=== PATIENT | female | born 1955 | race African-American/Black ===

== ENCOUNTER 2017-05-06 14:35 | Emergency (ER) | payer OTHER ==
[~2017-05-06] VITALS: Ht 167.6 cm; Wt 109.0 kg
[2017-05-06 14:46] VITALS: BP 155/71; PULSE 73; RESP 16; TEMP 97.6; O2SAT 96
--- NOTE | 2017-05-06 15:10 | PD ---
HPI Chief Complaint: Fall Time Seen by Provider: 15:05 Travel History International Travel<30 days: No Contact w/Intl Traveler<30days: No Traveled to known affect area: No History of Present Illness HPI Patient comes in for evaluation status post mechanical fall hitting her head. Patient states she was walking when her left knee buckled on her causing her to fall forward hitting her left forehead on the door frame and causing her fall to her knees. Patient denies any loss of consciousness, nausea, vomiting, chest pain, shortness of breath, loss of bowel or bladder, change in vision, dizziness or numbness or tingling anywhere. Patient is on Plavix and aspirin for previous stroke. Having pain over hematoma and a slight headache. Patient reports only residual deficit from stroke is also peripheral vision in her right eye. Patient states her knee has given out on her before and it feels fine currently. Patient complaining associated neck pain she describes as a soreness. Patient states she applied ice to the hematoma prior coming to the emergency department. Patient denies doing anything else for this. PFSH Past Medical History Hx Anticoagulant Therapy: Yes Cerebrovascular Accident: Yes Hypertension: Yes Social History Alcohol Use: Yes Tobacco Use: Yes Substance Use: No Allergies-Medications (Allergen,Severity, Reaction): Coded Allergies: Sulfa (Verified Allergy, Severe, 05/06/17) Reported Meds & Prescriptions Reported Meds & Active Scripts Active Reported [lisino] Ditropan (Oxybutynin Chloride) 5 Mg Tab 5 Mg PO Q8HR Aspirin 325 Mg Tab 325 Mg PO DAILY [plavix] Review of Systems Except as stated in HPI: all other systems reviewed are Neg Physical Exam Narrative GENERAL: Well-developed, overly nourished, in no acute distress, and non-ill appearing. SKIN: Focused skin assessment warm and dry. Hematoma left forehead is tender to palpation. Small bruise left anterior knee. HEAD: Atraumatic. Normocephalic. EYES: Pupils equal and round. EOMI. No scleral icterus. No injection or drainage. ENT: No nasal bleeding or discharge. Mucous membranes pink and moist. NECK: Trachea midline. Supple. No nuclear rigidity. CARDIOVASCULAR: Regular rate and rhythm. No murmur appreciated. RESPIRATORY: No accessory muscle use. No respiratory distress. Clear to auscultation. Breath sounds equal bilaterally. MUSCULOSKELETAL: No obvious deformities. No clubbing. No cyanosis. No edema. Full range of motion. Shoulder:FROM equal BL with passive flexion, extension, Abduction, Adduction, internal/external rotation, and pronation/supination. Sensation equal BL deltoid muscles. Pulses equal BL distal to injury. Capillary refill less than 2 seconds distal to injury and equal BL. FROM distal to injury and equal BL. Strength distal to injury equal BL. NV intact distal to injury equal BL. Flexion and extension of thumb equal BL. Equal strength and movement with abduction/adductions of BL fingers. Automobile Assembler strength equal BL. Knee: Negative patellar apprehension, varus and valgus maneuvers, anterior draw test, and Olu test. Pulses equal BL distal to injury. Capillary refill less than 2 seconds distal to injury and equal BL. FROM distal to injury and equal BL. Strength distal to injury equal BL. NV intact distal to injury. Dorsal pulses equal BL. Sensation equal BL 1st web space. NEUROLOGICAL: Awake and alert. No obvious cranial nerve deficits. Motor grossly within normal limits. Normal speech. PSYCHIATRIC: Appropriate mood and affect; insight and judgment normal. Data Data Last Documented VS Vital Signs Date Time Temp Pulse Resp B/P Pulse Ox O2 Delivery O2 Flow Rate FiO2 05/06/17 16:56 16 05/06/17 15:14 97 Room Air 05/06/17 14:46 97.6 73 155/71 Orders Basic Metabolic Panel (Bmp) (05/06/17 15:03) Complete Blood Count With Diff (05/06/17 15:03) Prothrombin Time / Inr (Pt) (05/06/17 15:03) Act Partial Throm Time (Ptt) (05/06/17 15:03) Iv Access Insert/Monitor (05/06/17 15:03) Ecg Monitoring (05/06/17 15:03) Oximetry (05/06/17 15:03) Sodium Chloride 0.9% Flush (Ns Flush) (05/06/17 15:15) Apply Cervical Collar (05/06/17 15:03) Ct Brain W/O Iv Contrast(Rout) (05/06/17 ) Ct Cerv Spine W/O Contrast (05/06/17 ) Ice/Cold Pack (05/06/17 15:03) Acetaminophen (Tylenol) (05/06/17 15:15) Collar Garvin (05/06/17 ) Labs Laboratory Tests Test 05/06/17 15:12 White Blood Count 8.5 TH/MM3 Red Blood Count 4.71 MIL/MM3 Hemoglobin 15.3 GM/DL Hematocrit 46.5 % Mean Corpuscular Volume 98.5 FL Mean Corpuscular Hemoglobin 32.5 PG Mean Corpuscular Hemoglobin 32.9 % Concent Red Cell Distribution Width 13.5 % Platelet Count 244 TH/MM3 Mean Platelet Volume 8.2 FL Neutrophils (%) (Auto) 61.8 % Lymphocytes (%) (Auto) 25.4 % Monocytes (%) (Auto) 7.3 % Eosinophils (%) (Auto) 5.1 % Basophils (%) (Auto) 0.4 % Neutrophils # (Auto) 5.3 TH/MM3 Lymphocytes # (Auto) 2.2 TH/MM3 Monocytes # (Auto) 0.6 TH/MM3 Eosinophils # (Auto) 0.4 TH/MM3 Basophils # (Auto) 0.0 TH/MM3 CBC Comment DIFF FINAL Differential Comment Prothrombin Time 10.8 SEC Prothromb Time International 1.0 RATIO Ratio Activated Partial 23.7 SEC Thromboplast Time Sodium Level 142 MEQ/L Potassium Level 3.9 MEQ/L Chloride Level 106 MEQ/L Carbon Dioxide Level 27.8 MEQ/L Anion Gap 8 MEQ/L Blood Urea Nitrogen 12 MG/DL Creatinine 0.68 MG/DL Estimat Glomerular Filtration 106 ML/MIN Rate Random Glucose 89 MG/DL Calcium Level 9.5 MG/DL MDM Medical Decision Making Medical Screen Exam Complete: Yes Emergency Medical Condition: Yes Interpretation(s) CT of the head read by the radiologist shows: 1. Focal CSF collection within the posterior medial aspect of the left occipital lobe measuring 5.3 x 1.9 cm consistent with arachnoid cyst or focal porencephaly. 2. No acute infarct, acute hemorrhage, midline shift or significant mass effect. CT the neck read by the radiologist shows: Advanced arthritic changes. No acute fracture identified. Differential Diagnosis Head injury, hemorrhage, hematoma, fracture, strain, other Narrative Course Patient presents with closed head injury neck strain. There was no evidence of cranial or intracranial injury noted on CT of the head and no evidence of fracture or injury to cervical spine on C-spine CT. The patient has been behaving normally and no notable altered mental status. [place] score of 15. The neurologic exam is normal. The patient is awake and aware and motor sensory exams are normal. There is no clinical evidence to support intracranial injury or bleed. Patient in no obvious distress upon re-evaluation. All pertinent laboratory/ Radiology result(s) discussed with patient. Any questions/concerns in reference to patient diagnosis/condition discussed and clarified prior to patient's discharge. Reinforced sheer importance of close follow up with patient's primary physician or primary care clinic. Instructed patient to return to ED immediately, if symptoms return/worsen. Pt showed understanding of above instructions. Further instructions and recommendations were detailed in discharge paperwork. Pt ambulated without difficulty out of ED at discharge. Diagnosis Primary Impression: Closed head injury Qualified Code: S09.90XA - Closed head injury, initial encounter Additional Impressions: Hematoma Cervical strain, acute Qualified Code: S16.1XXA - Cervical strain, acute, initial encounter Patient Instructions: Cervical Neck Strain Exercises (GEN), Cervical Strain (ED ), General Instructions, Head Injury (ED), Hematoma (ED) Additional Instructions: Follow-up with your primary care physician this week for reevaluation. Use over -the-counter Tylenol as needed for pain. Follow instructions on the packaging. Place ice to affected area 20 minutes per hour as needed for pain and swelling. Return to the emergency department if symptoms get worse. Disposition: 01 DISCHARGE HOME Condition: Stable Herrera Jacobson May 06, 2017 15:10
[2017-05-06 15:14] VITALS: O2SAT 97
[2017-05-06] MEDS ORDERED: ACETAMINOPHEN 500 MG CPLT PO ONE (15:15)
[2017-05-06] MEDS ORDERED: SODIUM CHLORIDE 0.9% FLUSH 10 ML FLUSH IV FLUSH PRN (15:15)
[2017-05-06] MEDS ORDERED: plavix (15:22)
[2017-05-06] MEDS ORDERED: OXYB5TAB10 PO (15:22)
[2017-05-06] MEDS ORDERED: lisino (15:22)
[2017-05-06] MEDS ORDERED: ASPI325T PO (15:22)
[2017-05-06 15:56] LABS: AUTOMATED NEUTROPHIL # 5.3 TH/MM3 (1.8-7.7); BASOPHIL % 0.4 % (0.0-2.0); EOSINOPHIL # 0.4 TH/MM3 (0-0.4); EOSINOPHIL % 5.1 % (0.0-4.0); HEMATOCRIT 46.5 % (35.0-46.0); HEMO FLAGS DIFF FINAL; LYMPH % 25.4 % (9.0-44.0); LYMPHOCYTE # 2.2 TH/MM3 (1.0-4.8); MEAN CELL VOLUME 98.5 FL (80.0-100.0); MEAN CORPUSCULAR HEMOGLOBIN 32.5 PG (27.0-34.0); MEAN CORPUSCULAR HGB CONC 32.9 % (32.0-36.0); MONO % 7.3 % (0.0-8.0); NEUT % 61.8 % (16.0-70.0); PLATELET COUNT 244 TH/MM3 (150-450); RED BLOOD COUNT 4.71 MIL/MM3 (4.00-5.30); RED CELL DISTRIBUTION WIDTH 13.5 % (11.6-17.2); WHITE BLOOD COUNT 8.5 TH/MM3 (4.0-11.0)
[2017-05-06 16:04] LABS: APTT (PATIENT) 23.7 SEC (24.3-30.1); PROTHROMBIN TIME - PATIENT 10.8 SEC (9.8-11.6)
--- NOTE | 2017-05-06 16:05 | RADRPT ---
EXAM DATE/TIME: 05/06/2017 15:30 [facility] COMPARISON: No previous studies available for comparison. INDICATIONS : Patient fell hit head. RADIATION DOSE: 56.35 CTDIvol (mGy) MEDICAL HISTORY : None SURGICAL HISTORY : None. ENCOUNTER: Initial ACUITY: 1 day PAIN SCALE: 4/10 LOCATION: Cranial TECHNIQUE: Multiple contiguous axial images were obtained of the head. Using automated exposure control and adj ustment of the mA and/or kV according to patient size, radiation dose was kept as low as reasonably a chievable to obtain optimal diagnostic quality images. FINDINGS: There is evidence of a CSF containing collection along the posterior medial aspect of the left occipi dallin lobe measuring 5.3 x 1.9 cm consistent with arachnoid cyst or focal porencephaly. No acute hemor rhage, acute infarct, mass effect or midline shift is noted. The ventricles are normal in size, shape and position for the patient's age. The bone windows are unremarkable. CONCLUSION: 1. Focal CSF collection within the posterior medial aspect of the left occipital lobe measuring 5.3 x 1.9 cm consistent with arachnoid cyst or focal porencephaly. 2. No acute infarct, acute hemorrhage, midline shift or significant mass effect. Eric Wright MD on May 06, 2017 at 15:57 Board Certified Radiologist. This report was verified electronically.
--- NOTE | 2017-05-06 16:08 | RADRPT ---
EXAM DATE/TIME: 05/06/2017 15:31 [facility] COMPARISON: CT BRAIN W/O CONTRAST, May 06, 2017, 15:30. INDICATIONS : Patient fell hit head. RADIATION DOSE: 37.38 CTDIvol (mGy) MEDICAL HISTORY : None SURGICAL HISTORY : None. ENCOUNTER: Initial ACUITY: 1 day PAIN SCALE: 4/10 LOCATION: neck TECHNIQUE: Volumetric scanning of the cervical spine was performed. Multiplanar reconstructions in the sagittal, coronal and oblique axial planes were performed. Using automated exposure control and adjustment o f the mA and/or kV according to patient size, radiation dose was kept as low as reasonably achievable to obtain optimal diagnostic quality images. FINDINGS: Thin section axial imaging of the cervical spine was performed. Sagittal and coronal imaging demonstrate reversal of the normal cervical curve. There severe degenera tive changes at C4/5 and C5/6. There mild degenerative changes in the atlantodens joint. No acute fra cture is seen. C1/2: No acute bony abnormality identified. There are degenerative changes in the atlantodens joint C2/3: The thecal space is adequate. The neural foramina are adequate. No significant abnormality is identif ied. There is moderate facet arthritis bilaterally. C3/4: The thecal space is adequate. There is moderate facet arthritis on the right. This results in mild danny ny foraminal narrowing on the right. The foraminal on the left is adequate. C4/5: There is a severely degenerated disc with diffuse osteophytic ridging. This effaces the ventral theca l sac. There is osteophytic spur projecting into the lateral recess bilaterally. There is mild forami nal narrowing. C5/6: There is a degenerated disc with broad-based disc bulge and diffuse osteophytic ridging. This effaces the ventral thecal sac. There is uncovertebral osteophyte projecting into the lateral recess bilater ally. There is mild foraminal narrowing on the left. The foramen on the right is adequate. There is f acet arthritis bilaterally. C6/7: The thecal space is adequate. The neural foramina are adequate. No significant abnormality is identif ied. C7/T1: The thecal space is adequate. The neural foramina are adequate. No significant abnormality is identif ied. CONCLUSION: 1. Advanced arthritic changes as described above. No acute fracture identified. Tyler Negrete MD on May 06, 2017 at 16:03 Board Certified Radiologist. This report was verified electronically.
[2017-05-06 16:12] LABS: BICARBONATE 27.8 MEQ/L (21.0-32.0); POTASSIUM 3.9 MEQ/L (3.5-5.1)
[2017-05-06 16:56] VITALS: RESP 16
== END 2017-05-06 17:03 | disposition home or self-care (01) ==
LOC: NEPC 14:35
DX: S00.83XA Contusion of other part of head, initial encounter (principal); S16.1XXA Strain of muscle, fascia and tendon at neck level, initial encounter; S09.90XA Unspecified injury of head, initial encounter; W18.30XA Fall on same level, unspecified, initial encounter; Y93.01 Activity, walking, marching and hiking; Y92.9 Unspecified place or not applicable; I69.398 Other sequelae of cerebral infarction; H53.9 Unspecified visual disturbance; I10 Essential (primary) hypertension; Z72.0 Tobacco use; Z79.01 Long term (current) use of anticoagulants
CPT/HCPCS: 70450; 72125; 80048; 85025; 85610; 85730; 99285; L0150